=== PATIENT | male | born 1945 | race Caucasian/White ===

== ENCOUNTER 2017-02-23 15:50 | Emergency (ER) | payer OTHER, MEDICARE ==
[~2017-02-23] VITALS: Ht 172.7 cm; Wt 64.0 kg
[~2017-02-23 15:50] MED LIST: AMYL1CAP54 PO; APIX5TAB3 PO; ATOR20TA66 PO; CETI10CA PO; CHOL10002 PO; CLOP75TA15 PO; DILT180C95 PO; METH-360 PO; MORP60TA66 PO; NICO-687 TD; PANT-47 PO; POTA10TA15 PO; PRED20TA PO
[2017-02-23 17:10] VITALS: BP 141/70
== END 2017-02-23 17:10 | disposition home or self-care (01) ==
LOC: ER 15:51
DX: R53.1 Weakness (principal); I48.91 Unspecified atrial fibrillation; I25.10 Atherosclerotic heart disease of native coronary artery without angina pectoris; I11.0 Hypertensive heart disease with heart failure; I50.9 Heart failure, unspecified; J44.9 Chronic obstructive pulmonary disease, unspecified; E11.9 Type 2 diabetes mellitus without complications; F17.200 Nicotine dependence, unspecified, uncomplicated; Z86.19 Personal history of other infectious and parasitic diseases; Z87.01 Personal history of pneumonia (recurrent); Z88.8 Allergy status to other drugs, medicaments and biological substances; Z88.1 Allergy status to other antibiotic agents; Z79.899 Other long term (current) drug therapy
CPT/HCPCS: 93005; 99284

== ENCOUNTER 2017-11-27 16:56 | Emergency (ER) | payer MEDICARE, OTHER ==
[~2017-11-27] VITALS: Ht 172.7 cm; Wt 68.0 kg
[2017-11-27 17:31] LABS: BASOPHILS % (AUTO) 0.4 % (0-1); EOSINOPHILS # (AUTO) 0.3 X10'3 (0-0.9); EOSINOPHILS % (AUTO) 2.5 % (0-6); HEMATOCRIT 43.5 % (42.0-52.0); HEMOGLOBIN 14.5 g/dl (14.0-17.9); LYMPHOCYTES # (AUTO) 2.6 X10'3 (1.1-4.8); LYMPHOCYTES % (AUTO) 22.3 % (21-51); MEAN CORPUSCULAR HEMOGLOBIN 31.4 PG (27.0-31.0); MEAN CORPUSCULAR HGB CONC 33.3 % (33.0-36.5); MEAN CORPUSCULAR VOLUME 94.5 FL (78-98); MEAN PLATELET VOLUME 7.7 FL (7.4-10.4); MONOCYTES # (AUTO) 0.6 X10'3 (0-0.9); MONOCYTES % (AUTO) 4.7 % (2-12); NEUTROPHILS # (AUTO) 8.3 X10'3 (1.8-7.7); NEUTROPHILS % (AUTO) 70.1 % (42-75); PLATELET COUNT 305 X10'3 (140-440); RED CELL DISTRIBUTION WIDTH 14.1 % (11.5-14.5); WHITE BLOOD COUNT 11.8 X10'3 (4.5-11.0)
[2017-11-27 17:50] LABS: ALANINE AMINOTRANSFERASE 49 U/L (12-78); ALBUMIN 3.5 G/DL (3.4-5.0); ALBUMIN/GLOBULIN RATIO 0.9 (1.1-1.5); ALKALINE PHOSPHATASE 77 IU/L (46-116); ANION GAP 6 (8-16); ASPARTATE AMINO TRANSFERASE 25 U/L (10-37); BILIRUBIN,TOTAL 0.3 MG/DL (0.1-1.0); BLOOD UREA NITROGEN 19 MG/DL (7-18); BUN/CREATININE RATIO 28.4 (5.4-32.0); CALCIUM 8.4 MG/DL (8.5-10.1); CHLORIDE 103 MMOL/L (99-107); CREATININE 0.67 MG/DL (0.60-1.10); GLUCOSE 125 MG/DL (70-104); SODIUM 140 MMOL/L (135-145); TOTAL PROTEIN 7.3 G/DL (6.4-8.2); eGFR > 90 ML/MIN
[2017-11-27 18:03] LABS: INR 1.3 INR; PARTIAL THROMBOPLASTIN TIME 45 SECONDS (22-32); PROTHROMBIN TIME 12.8 SECONDS (9.0-12.0)
[2017-11-27] MEDS ORDERED: LEVO500T2 PO (18:19)
[2017-11-27 18:21] VITALS: BP 128/71
== END 2017-11-27 18:36 | disposition home or self-care (01) ==
LOC: ER 16:57
DX: J40 Bronchitis, not specified as acute or chronic (principal); I48.91 Unspecified atrial fibrillation; I25.119 Atherosclerotic heart disease of native coronary artery with unspecified angina pectoris; I11.0 Hypertensive heart disease with heart failure; I50.9 Heart failure, unspecified; E11.9 Type 2 diabetes mellitus without complications; J44.9 Chronic obstructive pulmonary disease, unspecified; B19.20 Unspecified viral hepatitis C without hepatic coma; F17.210 Nicotine dependence, cigarettes, uncomplicated; Z88.8 Allergy status to other drugs, medicaments and biological substances; Z79.899 Other long term (current) drug therapy
CPT/HCPCS: 36415; 71045; 80053; 83880; 84484; 85025; 85610; 85730; 93005; 99285

== ENCOUNTER 2018-06-19 19:46 | Emergency (ER) | payer MEDICARE, OTHER ==
[~2018-06-19] VITALS: Ht 167.6 cm; Wt 70.0 kg
[2018-06-19 20:59] LABS: CLARITY,URINE CLEAR (Clear); COLOR,URINE YELLOW (Yellow); GLUCOSE, URINE NEGATIVE (Neg); KETONES,URINE NEGATIVE (Neg); LEUKOCYTE ESTERASE ,URINE NEGATIVE (Neg); NITRITES, URINE NEGATIVE (Neg); OCCULT BLOOD,URINE NEGATIVE (Neg); PROTEIN,URINE NEGATIVE (Neg); UROBILINOGEN,URINE 0.2 E.U/dL (0.2-1.0)
[2018-06-19 21:01] LABS: UA COLLECTION TYPE CLN CATCH MIDSTREAM
[2018-06-19 22:31] VITALS: BP 116/65
== END 2018-06-19 22:33 | disposition home or self-care (01) ==
LOC: ER 19:46
DX: N20.0 Calculus of kidney (principal); M54.5 Low back pain; I48.91 Unspecified atrial fibrillation; I25.10 Atherosclerotic heart disease of native coronary artery without angina pectoris; I11.0 Hypertensive heart disease with heart failure; I50.9 Heart failure, unspecified; J44.9 Chronic obstructive pulmonary disease, unspecified; E11.9 Type 2 diabetes mellitus without complications; F17.200 Nicotine dependence, unspecified, uncomplicated; Z88.8 Allergy status to other drugs, medicaments and biological substances; Z88.1 Allergy status to other antibiotic agents; Z79.899 Other long term (current) drug therapy
CPT/HCPCS: 74176; 81003; 99284

== ENCOUNTER 2018-09-11 10:55 | Emergency (ER) | payer MEDICARE, OTHER ==
[~2018-09-11] VITALS: Ht 167.6 cm; Wt 72.7 kg
[~2018-09-11 10:55] MED LIST changes: +DILT-36 PO; -DILT180C95 PO; -MORP60TA66 PO; +MORP60TA77 PO
[2018-09-11 11:04] VITALS: BP 132/75
[2018-09-11] MEDS ORDERED: VALA100027 PO (12:38)
[2018-09-11] MEDS ORDERED: HYDR-4353 PO (12:43)
== END 2018-09-11 12:53 | disposition home or self-care (01) ==
LOC: ER 10:56
DX: B02.9 Zoster without complications (principal); R21 Rash and other nonspecific skin eruption; I48.91 Unspecified atrial fibrillation; I25.10 Atherosclerotic heart disease of native coronary artery without angina pectoris; I11.0 Hypertensive heart disease with heart failure; I50.9 Heart failure, unspecified; J44.9 Chronic obstructive pulmonary disease, unspecified; E11.9 Type 2 diabetes mellitus without complications; Z88.8 Allergy status to other drugs, medicaments and biological substances; Z79.899 Other long term (current) drug therapy
CPT/HCPCS: 99283

== ENCOUNTER 2018-09-25 20:04 | Emergency (ER) | payer MEDICARE, OTHER ==
[~2018-09-25] VITALS: Ht 170.2 cm; Wt 68.2 kg
[~2018-09-25 20:04] MED LIST changes: +HYDR-4353 PO; +VALA100027 PO
[2018-09-25] MEDS ORDERED: ketorolac tromethamine 15mg/ml inj. IM ONE (21:10)
[2018-09-25 22:03] VITALS: BP 129/61
== END 2018-09-25 22:04 | disposition home or self-care (01) ==
LOC: ER 20:05
DX: R51 Headache (principal); H54.7 Unspecified visual loss; I48.91 Unspecified atrial fibrillation; I25.10 Atherosclerotic heart disease of native coronary artery without angina pectoris; I50.9 Heart failure, unspecified; I11.0 Hypertensive heart disease with heart failure; J44.9 Chronic obstructive pulmonary disease, unspecified; E11.9 Type 2 diabetes mellitus without complications; F15.90 Other stimulant use, unspecified, uncomplicated; Z88.8 Allergy status to other drugs, medicaments and biological substances; Z88.1 Allergy status to other antibiotic agents; Z79.899 Other long term (current) drug therapy; Z86.19 Personal history of other infectious and parasitic diseases; Z87.01 Personal history of pneumonia (recurrent); Z86.79 Personal history of other diseases of the circulatory system; Z86.69 Personal history of other diseases of the nervous system and sense organs
CPT/HCPCS: 96372; 99283; J1885

== ENCOUNTER 2019-01-21 06:26 | Inpatient (IN) | payer MEDICARE, OTHER ==
[~2019-01-21] VITALS: Ht 170.2 cm; Wt 68.4 kg
[~2019-01-21 06:26] MED LIST changes: -HYDR-4353 PO
[2019-01-21] MEDS ORDERED: albuterol 2.5 MG/3 ML nebule NEB ONE (07:15)
[2019-01-21] MEDS ORDERED: CefTRIAXone 2gm/D5W 50ml 50 ML IV ONE (08:15)
[2019-01-21] MEDS ORDERED: azithromycin 250mg tablet PO ONE (08:15)
[2019-01-21] MEDS ORDERED: methylPREDNISolone sod succ 125mg/2ml vial IV ONE (08:15)
[2019-01-21 08:21] LABS: BASOPHILS # (AUTO) 0.1 X10'3 (0-0.2); BASOPHILS % (AUTO) 0.4 % (0-1); EOSINOPHILS # (AUTO) 0.1 X10'3 (0-0.9); EOSINOPHILS % (AUTO) 0.7 % (0-6); HEMATOCRIT 40.5 % (42.0-52.0); HEMOGLOBIN 13.6 g/dl (14.0-17.9); LYMPHOCYTES # (AUTO) 1.9 X10'3 (1.1-4.8); LYMPHOCYTES % (AUTO) 11.7 % (21-51); MEAN CORPUSCULAR HEMOGLOBIN 30.8 PG (27.0-31.0); MEAN CORPUSCULAR HGB CONC 33.7 g/dL (33.0-36.5); MEAN CORPUSCULAR VOLUME 91.5 FL (78-98); MEAN PLATELET VOLUME 8.3 FL (7.4-10.4); MONOCYTES # (AUTO) 1.3 X10'3 (0-0.9); MONOCYTES % (AUTO) 8.3 % (2-12); NEUTROPHILS # (AUTO) 12.5 X10'3 (1.8-7.7); NEUTROPHILS % (AUTO) 78.9 % (42-75); PLATELET COUNT 252 X10'3 (140-440); RED BLOOD COUNT 4.43 X10'6 (4.70-6.10); RED CELL DISTRIBUTION WIDTH 14.1 % (11.5-14.5); WHITE BLOOD COUNT 15.8 X10'3 (4.5-11.0)
[2019-01-21 08:25] LABS: D-DIMER 0.47 MG/L FEU (0-0.50)
[2019-01-21 09:08] LABS: ALANINE AMINOTRANSFERASE 18 U/L (12-78); ALBUMIN 3.1 G/DL (3.4-5.0); ALBUMIN/GLOBULIN RATIO 0.8 (1.1-1.5); ALKALINE PHOSPHATASE 80 IU/L (46-116); ANION GAP 11 (8-16); ASPARTATE AMINO TRANSFERASE 18 U/L (10-37); BILIRUBIN,TOTAL 0.6 MG/DL (0.1-1.0); BLOOD UREA NITROGEN 13 MG/DL (7-18); BUN/CREATININE RATIO 16.9 (5.4-32.0); CALCIUM 8.7 MG/DL (8.5-10.1); CHLORIDE 101 MMOL/L (99-107); CREATININE 0.77 MG/DL (0.60-1.10); GLUCOSE 138 MG/DL (70-104); POTASSIUM 3.9 MMOL/L (3.5-5.1); SODIUM 133 MMOL/L (135-145); TOTAL CARBON DIOXIDE 21.3 MMOL/L (24-32); TOTAL PROTEIN 7.2 G/DL (6.4-8.2); eGFR > 90 ML/MIN
[2019-01-21] MEDS ORDERED: ondansetron/PF 4mg/2ml inj IV PRN (09:30)
[2019-01-21] MEDS ORDERED: magnesium Cl slow-release 64mg tablet PO PRN (09:30)
[2019-01-21] MEDS ORDERED: acetaminophen 325mg tablet PO PRN (09:30)
[2019-01-21] MEDS ORDERED: potassium CL 10mEq/100ml bag 100 ML IV PRN ×2 (09:30)
[2019-01-21] MEDS ORDERED: magnesium 4gm in 100ml NS 100 ML IV PRN (09:30)
[2019-01-21] MEDS ORDERED: magnesium 2GM in 50ml NS 50 ML IV PRN (09:30)
[2019-01-21] MEDS ORDERED: mag hydrox/Alum hydrox/simeth 30ml oral suspension PO PRN (09:30)
[2019-01-21] MEDS ORDERED: potassium Cl 20 mEq SR tablet PO PRN ×2 (09:30)
[2019-01-21] MEDS ORDERED: docusate sod 100mg capsule PO PRN (09:30)
[2019-01-21] MEDS ORDERED: RIVA20TA PO (09:34)
[2019-01-21] MEDS ORDERED: pneumococcal 23-VAL P-sac vacc 25 mcg/0.5ml vial IMVAC ONE (09:35)
[2019-01-21] MEDS ORDERED: DILT120C91 PO (09:36)
[2019-01-21] MEDS ORDERED: SILD100T70 PO (09:36)
[2019-01-21] MEDS ORDERED: LISI2.5T2 PO (09:37)
[2019-01-21] MEDS: nicotine 21mg patch - 24 hr TD SCH (10:03)
[2019-01-21] MEDS ORDERED: insulin Lispro (HumaLOG) vial - multi-dose SQ SCH (10:50)
[2019-01-21] MEDS ORDERED: dextrose 50%-water 50ml dispensing syringe IV PRN ×2 (10:50)
[2019-01-21] MEDS ORDERED: MESSAGE TO PHARMACY PO ONE (10:50)
[2019-01-21] MEDS ORDERED: dextrose ORAL solution 15 GM/59 ML bottle PO PRN ×2 (10:50)
[2019-01-21] MEDS ORDERED: glucagon, human recombinant 1mg kit SUBCUT PRN (10:50)
[2019-01-21 11:14] LABS: HEMOGLOBIN A1C 6.6 % (4.5-6.2)
--- NOTE | 2019-01-21 11:55 | NUR ---
RECEIVED REPORT VIA TELEPHONE FROM ROSAURA CARDOZA.
--- NOTE | 2019-01-21 12:20 | NUR ---
RECEIVED FROM ER VIA [facility]. VS STABLE.
[2019-01-21 12:30] VITALS: BP 129/45
--- NOTE | 2019-01-21 13:28 | NUR ---
PAGER ID: [phone] MESSAGE: DR. JUNIOR, 6824/DEMI, C/O 09/14 GARCÍA PAIN AND 07/15 GEN PAIN, ACHE. HAVE NOT PAIN MED ORDERS. PT REQUESTING DIMA, STATES "THEY GAVE IS TO ME LAST TIME I WAS HERE, AND IT HELPED". JOE [id number]. TY
[2019-01-21] MEDS: methylPREDNISolone sod succ 125mg/2ml vial IV SCH ×2 (13:59→20:16)
[2019-01-21] MEDS: HYDROcodone/acetaminophen 5mg/325mg tablet PO PRN (14:33)
[2019-01-21 15:00] VITALS: BP 127/46
[2019-01-21] MEDS ORDERED: diltiazem SR 60mg capsule (twice daily) PO STA (15:46)
--- NOTE | 2019-01-21 18:00 | NUR ---
Patient in room PCU 3022. I have received report from Floyd KAPLAN and had the opportunity to ask questions and assume patient care.
--- NOTE | 2019-01-21 18:02 | NUR ---
PAGER ID: [phone] MESSAGE: DR. JUNIOR, 3022/DEMI, ADM THE DILTIAZEM 120MG PO AT 1605. CURRENT HR 128. JOE [id number], TY
[2019-01-21] MEDS ORDERED: diltiazem-NS 100mg/100ml 100 ML IV SCH (18:05)
[2019-01-21] MEDS ORDERED: diltiazem 5mg/ml 5ml inj. IV ONE (18:05)
--- NOTE | 2019-01-21 18:54 | NUR ---
Problems reprioritized. Patient report given, questions answered & plan of care reviewed with lo benitez.
[2019-01-21 19:00] VITALS: BP 134/68
--- NOTE | 2019-01-21 19:00 | NUR ---
Kaye Stringer was notified of the heart rate stable at 94-103, ordered to discontinue Cardizem drip. Addendum: 01/22/19 at 0549 by Brittany Barron RN and discontinue cardizem push.
[2019-01-21] MEDS: K and/or MAG REPLACEMENT MC SCH (20:00)
[2019-01-21] MEDS ORDERED: apixaban 5mg tablet PO SCH (20:00)
[2019-01-21] MEDS: cetirizine 10mg tablet PO SCH (20:16)
[2019-01-21] MEDS: insulin glargine (Lantus) pen - multi-dose SQ SCH (21:00)
[2019-01-21 23:00] VITALS: BP 128/67
[2019-01-22] MEDS: methylPREDNISolone sod succ 125mg/2ml vial IV SCH ×4 (01:52→21:08)
[2019-01-22 03:00] VITALS: BP 111/48
--- NOTE | 2019-01-22 05:30 | NUR ---
End noc note Patient has slept well tonight. Patient refused insulin stating that "I ate two meals at once I usually eat 3 meals a day at home, I dont want to take insulin, I should be fine for the night". Also took a shower on my shift, feeling a lot better.
--- NOTE | 2019-01-22 05:34 | NUR ---
Patient in room PCU 3022. I have received report from ROSAURA TRINIDAD and had the opportunity to ask questions and assume patient care.
--- NOTE | 2019-01-22 05:46 | NUR ---
Problems reprioritized. Patient report given, questions answered & plan of care reviewed with Nancy KAPLAN.
[2019-01-22 05:48] LABS: BASOPHILS % (AUTO) 0.2 % (0-1); EOSINOPHILS % (AUTO) 0 % (0-6); HEMATOCRIT 38.7 % (42.0-52.0); LYMPHOCYTES # (AUTO) 0.9 X10'3 (1.1-4.8); LYMPHOCYTES % (AUTO) 8.2 % (21-51); MEAN CORPUSCULAR HGB CONC 33.7 g/dL (33.0-36.5); MEAN CORPUSCULAR VOLUME 91.9 FL (78-98); MEAN PLATELET VOLUME 8.4 FL (7.4-10.4); MONOCYTES # (AUTO) 0.3 X10'3 (0-0.9); NEUTROPHILS # (AUTO) 10.1 X10'3 (1.8-7.7); NEUTROPHILS % (AUTO) 88.6 % (42-75); PLATELET COUNT 285 X10'3 (140-440); RED BLOOD COUNT 4.21 X10'6 (4.70-6.10); RED CELL DISTRIBUTION WIDTH 14.3 % (11.5-14.5); WHITE BLOOD COUNT 11.4 X10'3 (4.5-11.0)
--- NOTE | 2019-01-22 05:50 | NUR ---
pt just arrived from PCU , denies any discomfort and in no distress
--- NOTE | 2019-01-22 06:04 | NUR ---
Patient in room [facility] 340. I have received report from Nancy Peacock RN and had the opportunity to ask questions and assume patient care.
--- NOTE | 2019-01-22 06:06 | NUR ---
Problems reprioritized. Patient report given, questions answered & plan of care reviewed with ROSAURA Chilel.
[2019-01-22 06:10] LABS: ALANINE AMINOTRANSFERASE 21 U/L (12-78); ALBUMIN 3.1 G/DL (3.4-5.0); ALBUMIN/GLOBULIN RATIO 0.8 (1.1-1.5); ALKALINE PHOSPHATASE 85 IU/L (46-116); ANION GAP 10 (8-16); ASPARTATE AMINO TRANSFERASE 12 U/L (10-37); BILIRUBIN,TOTAL 0.3 MG/DL (0.1-1.0); BLOOD UREA NITROGEN 24 MG/DL (7-18); BUN/CREATININE RATIO 27.9 (5.4-32.0); CHLORIDE 100 MMOL/L (99-107); CHOL/HDL RATIO 2.6 (0.00-4.99); CHOLESTEROL 116 MG/DL (0-200); CREATININE 0.86 MG/DL (0.60-1.10); GLUCOSE 224 MG/DL (70-104); HDL CHOLESTEROL 45 MG/DL (35-60); LDL CHOLESTEROL 57 MG/DL (50-100); MAGNESIUM 1.9 MG/DL (1.5-2.4); POTASSIUM 4.2 MMOL/L (3.5-5.1); SODIUM 135 MMOL/L (135-145); TOTAL CARBON DIOXIDE 25.3 MMOL/L (24-32); TOTAL PROTEIN 7.2 G/DL (6.4-8.2); TRIGLYCERIDES 46 MG/DL (20-135); eGFR 88 ML/MIN
[2019-01-22 07:00] VITALS: BP 116/63
[2019-01-22] MEDS: K and/or MAG REPLACEMENT MC SCH ×2 (07:27→21:08)
[2019-01-22] MEDS: nicotine 21mg patch - 24 hr TD SCH (07:55)
[2019-01-22] MEDS: vitamin D (cholecalciferol) 1,000 unit tablet PO SCH (07:56)
[2019-01-22] MEDS: CefTRIAXone/D5W-Rocephin 1gm 50 ML IV SCH (07:56)
[2019-01-22] MEDS: atorvastatin 20mg tablet PO SCH (07:56)
[2019-01-22] MEDS: diltiazem CD 120mg capsule (once-daily) PO SCH (07:56)
[2019-01-22] MEDS: lisinopril 2.5mg tablet PO SCH (07:57)
[2019-01-22] MEDS: rivaroxaban 20mg tablet PO SCH (07:57)
[2019-01-22] MEDS: HYDROcodone/acetaminophen 5mg/325mg tablet PO PRN ×2 (08:02→21:11)
[2019-01-22] MEDS: azithromycin/NS 500mg/250ml 250 ML IV SCH (08:47)
--- NOTE | 2019-01-22 09:17 | NUR ---
Patient blood sugar was 197 this morning and prior to this had sugars over 200. Patient has technically met protocol but is refusing insulin. MD notified and discussed the importance of managing sugars and educated the patient that by bringing his sugars down he may in fact heal faster. Patient also educated that taking the Solu-Medrol will increase his sugars as well. Patient still refusing at this time.
[2019-01-22] MEDS: ipratropium 0.5 MG/2.5ML nebule IH SCH ×3 (10:13→20:19)
[2019-01-22] MEDS: levalbuterol 0.63mg/3ml nebule IH SCH ×3 (10:14→20:19)
[2019-01-22 11:00] VITALS: BP 135/81
--- NOTE | 2019-01-22 12:52 | NUR ---
Patient blood sugar was 227 prior to eating lunch, patient still refusing to allow us to give him insulin.
--- NOTE | 2019-01-22 18:22 | NUR ---
Problems reprioritized. Patient report given, questions answered & plan of care reviewed with Arielle Guzmán RN.
--- NOTE | 2019-01-22 18:30 | NUR ---
Patient in room [facility] 340. I have received report from KOJO KAPLAN and had the opportunity to ask questions and assume patient care.
[2019-01-22 20:00] VITALS: BP 123/63
[2019-01-22] MEDS: cetirizine 10mg tablet PO SCH (21:09)
[2019-01-22] MEDS: insulin glargine (Lantus) pen - multi-dose SQ SCH (23:09)
[2019-01-23] VITALS: BP 121/60
[2019-01-23] MEDS: methylPREDNISolone sod succ 125mg/2ml vial IV SCH ×2 (01:47→08:25)
[2019-01-23] MEDS: HYDROcodone/acetaminophen 5mg/325mg tablet PO PRN ×2 (01:48→11:47)
[2019-01-23] MEDS: levalbuterol 0.63mg/3ml nebule IH SCH ×2 (03:36→07:04)
[2019-01-23 04:31] LABS: BASOPHILS % (AUTO) 0.1 % (0-1); EOSINOPHILS % (AUTO) 0 % (0-6); HEMATOCRIT 33.3 % (42.0-52.0); HEMOGLOBIN 11.4 g/dl (14.0-17.9); LYMPHOCYTES # (AUTO) 1.1 X10'3 (1.1-4.8); LYMPHOCYTES % (AUTO) 8.7 % (21-51); MEAN CORPUSCULAR HGB CONC 34.3 g/dL (33.0-36.5); MEAN CORPUSCULAR VOLUME 90.5 FL (78-98); MEAN PLATELET VOLUME 8.2 FL (7.4-10.4); MONOCYTES # (AUTO) 0.4 X10'3 (0-0.9); MONOCYTES % (AUTO) 3.4 % (2-12); NEUTROPHILS # (AUTO) 11.3 X10'3 (1.8-7.7); NEUTROPHILS % (AUTO) 87.8 % (42-75); PLATELET COUNT 290 X10'3 (140-440); RED BLOOD COUNT 3.68 X10'6 (4.70-6.10); RED CELL DISTRIBUTION WIDTH 14.3 % (11.5-14.5); WHITE BLOOD COUNT 12.9 X10'3 (4.5-11.0)
[2019-01-23 04:54] LABS: ALANINE AMINOTRANSFERASE 49 U/L (12-78); ALBUMIN 2.9 G/DL (3.4-5.0); ALBUMIN/GLOBULIN RATIO 0.8 (1.1-1.5); ALKALINE PHOSPHATASE 67 IU/L (46-116); ANION GAP 8 (8-16); ASPARTATE AMINO TRANSFERASE 46 U/L (10-37); BILIRUBIN,TOTAL 0.2 MG/DL (0.1-1.0); BLOOD UREA NITROGEN 27 MG/DL (7-18); BUN/CREATININE RATIO 32.5 (5.4-32.0); CALCIUM 8.8 MG/DL (8.5-10.1); CHLORIDE 101 MMOL/L (99-107); CREATININE 0.83 MG/DL (0.60-1.10); GLUCOSE 252 MG/DL (70-104); MAGNESIUM 1.8 MG/DL (1.5-2.4); POTASSIUM 4.1 MMOL/L (3.5-5.1); SODIUM 134 MMOL/L (135-145); TOTAL CARBON DIOXIDE 25.1 MMOL/L (24-32); TOTAL PROTEIN 6.6 G/DL (6.4-8.2); eGFR > 90 ML/MIN
--- NOTE | 2019-01-23 06:32 | NUR ---
Patient in room [facility] 340. I have received report from Arielle Guzmán RN and had the opportunity to ask questions and assume patient care.
--- NOTE | 2019-01-23 06:32 | NUR ---
Problems reprioritized. Patient report given, questions answered & plan of care reviewed with KOJO KAPLAN.
[2019-01-23 07:00] VITALS: BP 114/64
[2019-01-23] MEDS: ipratropium 0.5 MG/2.5ML nebule IH SCH (07:04)
[2019-01-23] MEDS: K and/or MAG REPLACEMENT MC SCH (08:00)
[2019-01-23] MEDS: nicotine 21mg patch - 24 hr TD SCH (08:00)
[2019-01-23] MEDS: CefTRIAXone/D5W-Rocephin 1gm 50 ML IV SCH (08:25)
[2019-01-23] MEDS: lisinopril 2.5mg tablet PO SCH (08:25)
[2019-01-23] MEDS: diltiazem CD 120mg capsule (once-daily) PO SCH (08:25)
[2019-01-23] MEDS: vitamin D (cholecalciferol) 1,000 unit tablet PO SCH (08:26)
[2019-01-23] MEDS: atorvastatin 20mg tablet PO SCH (08:26)
[2019-01-23] MEDS: rivaroxaban 20mg tablet PO SCH (08:27)
[2019-01-23] MEDS: azithromycin/NS 500mg/250ml 250 ML IV SCH (09:32)
[2019-01-23] MEDS ORDERED: PRED20TA PO (09:55)
[2019-01-23] MEDS ORDERED: CEFU500T66 PO (09:55)
[2019-01-23] MEDS ORDERED: METF-950 PO (09:55)
[2019-01-23] MEDS ORDERED: AZIT250T83 PO (09:55)
[2019-01-23 11:00] VITALS: BP 111/73
--- NOTE | 2019-01-23 12:26 | NUR ---
Patient discharged home via roommate and taken from unit via wheelchair with x1 staff. PIV removed with cannula intact. Tele monitor removed and tele chambers notified. Patient blood sugar was not checked before leaving due to patient not receiving insulin and patient didn't want it checked again. [facility] and patient stated that he was going to go right after he leaves here. A copy of the prescription was placed in the hard chart. Patient was given discharge instructions and stated an understanding of it all.
== END 2019-01-23 12:33 | disposition home or self-care (01) | DRG 193 ==
LOC: ER 06:27 → ED HOLD 09:29 → PCU 3S 12:17 → SUR 3N 01-22 05:48
PROVIDERS: ADMIT Family Medicine; ATTEND Family Medicine
PROC: 3E0234Z Introduction of Serum, Toxoid and Vaccine into Muscle, Percutaneous Approach (ICD-10-PCS; principal; 2019-01-21)
DX: J18.9 Pneumonia, unspecified organism (principal); J96.00 Acute respiratory failure, unspecified whether with hypoxia or hypercapnia; I50.22 Chronic systolic (congestive) heart failure; I48.20 Chronic atrial fibrillation, unspecified; E87.1 Hypo-osmolality and hyponatremia; J44.0 Chronic obstructive pulmonary disease with (acute) lower respiratory infection; B19.20 Unspecified viral hepatitis C without hepatic coma; R51 Headache; F15.90 Other stimulant use, unspecified, uncomplicated; E11.9 Type 2 diabetes mellitus without complications; F17.210 Nicotine dependence, cigarettes, uncomplicated; I11.0 Hypertensive heart disease with heart failure; I25.10 Atherosclerotic heart disease of native coronary artery without angina pectoris; Z79.84 Long term (current) use of oral hypoglycemic drugs; Z79.01 Long term (current) use of anticoagulants; Z83.3 Family history of diabetes mellitus; Z23 Encounter for immunization; Z88.8 Allergy status to other drugs, medicaments and biological substances; Z79.899 Other long term (current) drug therapy; Z98.49 Cataract extraction status, unspecified eye; Z71.6 Tobacco abuse counseling
CPT/HCPCS: 36415; 71046; 80053; 80061; 82948; 83036; 83605; 83735; 83880; 84145; 84484; 85025; 85379; 87040; 87081; 87502; 87503; 90732; 93005; 93308; 94640; 94760; 96365; 96375; 99285; G0378; J0456; J0696; J1815; J2930; J3490; J7614

== ENCOUNTER 2019-02-01 12:49 | Emergency (ER) | payer MEDICARE, OTHER ==
[~2019-02-01] VITALS: Ht 170.2 cm; Wt 55.0 kg
[~2019-02-01 12:49] MED LIST changes: -AMYL1CAP54 PO; -APIX5TAB3 PO; +CEFU500T66 PO; -CLOP75TA15 PO; -DILT-36 PO; +DILT120C91 PO; +LISI2.5T2 PO; +METF-950 PO; -METH-360 PO; -MORP60TA77 PO; -NICO-687 TD; -PANT-47 PO; -POTA10TA15 PO; +RIVA20TA PO; -VALA100027 PO
[2019-02-01 13:03] VITALS: BP 126/98
[2019-02-01] MEDS ORDERED: L. R1CAP4 PO (14:31)
[2019-02-01] MEDS ORDERED: AMOX-580 PO (14:31)
== END 2019-02-01 15:09 | disposition home or self-care (01) ==
LOC: ER 12:50
DX: J18.9 Pneumonia, unspecified organism (principal); I48.91 Unspecified atrial fibrillation; I25.10 Atherosclerotic heart disease of native coronary artery without angina pectoris; I11.0 Hypertensive heart disease with heart failure; I50.9 Heart failure, unspecified; J44.9 Chronic obstructive pulmonary disease, unspecified; E11.9 Type 2 diabetes mellitus without complications; F15.90 Other stimulant use, unspecified, uncomplicated; Z86.19 Personal history of other infectious and parasitic diseases; Z87.891 Personal history of nicotine dependence; Z88.8 Allergy status to other drugs, medicaments and biological substances; Z88.1 Allergy status to other antibiotic agents; Z79.899 Other long term (current) drug therapy
CPT/HCPCS: 71045; 99283

== ENCOUNTER 2019-02-09 13:59 | Emergency (ER) | payer MEDICARE, OTHER ==
[~2019-02-09] VITALS: Ht 177.8 cm; Wt 80.0 kg
[~2019-02-09 13:59] MED LIST changes: +AMOX-580 PO; +L. R1CAP4 PO
[2019-02-09 14:30] VITALS: BP 215/177
--- NOTE | 2019-02-09 16:07 | NUR ---
PATIENT LWJASPER. CALLED PATIENTS HOME AND SPOKE TO ASKED HER TO CONTACT HER TO RETURN TO ER DUE TO HIS BLOOD PRESSURE. SHE SAID SHE WOULD SEND HIM BACK INTO THE ER.
--- NOTE | 2019-02-09 16:15 | NUR ---
PATIENT RETURNED MY CALL STATED HE DIDNT WANT TO DRIVE BACK TO THE ER "I JUST WANT TO LAY DOWN" HE STATED, I ASKED THAT HE CALL AN AMBULANCE IF HE COULDNT DRIVE. HE SAID HE WOULD THINK ABOUT. I EXPRESSED HOW DANGEROUSLY HIGH IS BLOOD PRESSURE IS AND TO PLEASE CALL EMR.
== END 2019-02-09 16:21 | disposition left against medical advice (07) ==
LOC: ER 14:00
DX: R45.1 Restlessness and agitation (principal); Z53.21 Procedure and treatment not carried out due to patient leaving prior to being seen by health care provider

== ENCOUNTER 2019-10-07 20:02 | Emergency (ER) | payer MEDICARE, OTHER ==
[~2019-10-07] VITALS: Ht 167.6 cm; Wt 68.2 kg
[~2019-10-07 20:02] MED LIST changes: -AMOX-580 PO; -METF-950 PO; -PRED20TA PO
[2019-10-07 20:11] VITALS: BP 142/95
== END 2019-10-07 22:15 | disposition home or self-care (01) ==
LOC: ER 20:02
DX: S90.122A Contusion of left lesser toe(s) without damage to nail, initial encounter (principal); I48.91 Unspecified atrial fibrillation; I25.10 Atherosclerotic heart disease of native coronary artery without angina pectoris; I11.0 Hypertensive heart disease with heart failure; I50.9 Heart failure, unspecified; J44.9 Chronic obstructive pulmonary disease, unspecified; E11.9 Type 2 diabetes mellitus without complications; F15.90 Other stimulant use, unspecified, uncomplicated; Z87.01 Personal history of pneumonia (recurrent); Z86.19 Personal history of other infectious and parasitic diseases; Z72.89 Other problems related to lifestyle; Z88.1 Allergy status to other antibiotic agents; Z79.2 Long term (current) use of antibiotics; Z88.8 Allergy status to other drugs, medicaments and biological substances; Z79.899 Other long term (current) drug therapy; X58.XXXA Exposure to other specified factors, initial encounter; Y93.89 Activity, other specified; Y92.89 Other specified places as the place of occurrence of the external cause; Y99.8 Other external cause status
CPT/HCPCS: 73630; 99284

== ENCOUNTER 2020-07-10 17:44 | Emergency (ER) | payer MEDICARE, OTHER ==
[~2020-07-10] VITALS: Ht 172.7 cm; Wt 63.6 kg
[2020-07-10 17:48] VITALS: BP 126/88
[2020-07-10] MEDS ORDERED: CYCL-1 PO (20:23)
[2020-07-10] MEDS ORDERED: HYDR-3965 PO (20:23)
[2020-07-10] MEDS ORDERED: ketorolac trometh. 30mg/ml inj. IM ONE (20:25)
[2020-07-10] MEDS ORDERED: HYDROcodone/acetaminophen 5mg/325mg tablet PO ONE (20:25)
[2020-07-10] MEDS ORDERED: diazepam 5mg tablet PO ONE (20:25)
== END 2020-07-10 20:47 | disposition home or self-care (01) ==
LOC: ER 17:45
DX: M54.2 Cervicalgia (principal); R51.9 Headache, unspecified; M62.838 Other muscle spasm; I48.91 Unspecified atrial fibrillation; I25.10 Atherosclerotic heart disease of native coronary artery without angina pectoris; I15.0 Renovascular hypertension; I11.0 Hypertensive heart disease with heart failure; J44.9 Chronic obstructive pulmonary disease, unspecified; E11.9 Type 2 diabetes mellitus without complications; F12.90 Cannabis use, unspecified, uncomplicated; Z87.01 Personal history of pneumonia (recurrent); Z86.19 Personal history of other infectious and parasitic diseases; Z87.442 Personal history of urinary calculi; Z72.89 Other problems related to lifestyle; Z88.1 Allergy status to other antibiotic agents; Z88.8 Allergy status to other drugs, medicaments and biological substances; Z79.899 Other long term (current) drug therapy
CPT/HCPCS: 96372; 99283; J1885

== ENCOUNTER 2023-06-25 01:19 | Emergency (ER) | payer OTHER ==
[~2023-06-25] VITALS: Ht 172.7 cm; Wt 63.4 kg
[~2023-06-25 01:19] MED LIST changes: +CYCL-1 PO; +DILT120C77 PO; -DILT120C91 PO; +LISI2.5T14 PO; -LISI2.5T2 PO
[2023-06-25 01:26] VITALS: BP 137/75; PULSE 83; RESP 18; TEMP 98.4; O2SAT 98
[2023-06-25 02:38] LABS: ALANINE AMINOTRANSFERASE 22 U/L (12-78); ALBUMIN 3.4 G/DL (3.4-5.0); ALBUMIN/GLOBULIN RATIO 0.8 (1.1-1.5); ALKALINE PHOSPHATASE 94 IU/L (46-116); ANION GAP 9 (8-16); ASPARTATE AMINO TRANSFERASE 21 U/L (10-37); BILIRUBIN,TOTAL 0.4 MG/DL (0.1-1.0); BLOOD UREA NITROGEN 18 MG/DL (7-18); BUN/CREATININE RATIO 17.5 (10.0-20.0); CALCIUM 8.8 MG/DL (8.5-10.1); CHLORIDE 103 MMOL/L (99-107); CREATININE 1.03 MG/DL (0.60-1.10); POTASSIUM 3.7 MMOL/L (3.5-5.1); SODIUM 139 MMOL/L (135-145); TOTAL CARBON DIOXIDE 26.8 MMOL/L (24-32); TOTAL PROTEIN 7.8 G/DL (6.4-8.2); eCRCL 55 ML/MIN; eGFR 70 ML/MIN
[2023-06-25 02:46] LABS: PRO BRAIN NATRIURETIC PEPTIDE 347 PG/ML (0-450)
[2023-06-25 02:48] LABS: GLUCOSE 124 MG/DL (70-104)
== END 2023-06-25 07:00 | disposition left against medical advice (07) ==
LOC: ER 01:20
DX: R07.9 Chest pain, unspecified (principal); Z53.21 Procedure and treatment not carried out due to patient leaving prior to being seen by health care provider; J44.9 Chronic obstructive pulmonary disease, unspecified; F15.90 Other stimulant use, unspecified, uncomplicated; I50.9 Heart failure, unspecified
CPT/HCPCS: 36415; 71045; 80053; 83880; 84484; 85025; 93005

== ENCOUNTER 2023-09-05 08:30 | Emergency (ER) | payer OTHER ==
[~2023-09-05] VITALS: Ht 170.2 cm; Wt 67.0 kg
[2023-09-05] MEDS: acetaminophen 325mg tablet PO ONE (08:54)
[2023-09-05 09:35] VITALS: BP 170/76; PULSE 75; RESP 16; TEMP 98.8; O2SAT 96
== END 2023-09-05 09:43 | disposition home or self-care (01) ==
LOC: ER 08:31
DX: R07.89 Other chest pain (principal); I48.91 Unspecified atrial fibrillation; I25.10 Atherosclerotic heart disease of native coronary artery without angina pectoris; I11.0 Hypertensive heart disease with heart failure; I50.9 Heart failure, unspecified; E11.9 Type 2 diabetes mellitus without complications; J44.9 Chronic obstructive pulmonary disease, unspecified; F15.90 Other stimulant use, unspecified, uncomplicated; Z87.442 Personal history of urinary calculi; Z72.89 Other problems related to lifestyle; Z88.8 Allergy status to other drugs, medicaments and biological substances; Z88.1 Allergy status to other antibiotic agents; Z79.899 Other long term (current) drug therapy
CPT/HCPCS: 71045; 93005; 99284

== ENCOUNTER 2025-01-04 13:50 | Emergency (ER) | payer MEDICARE, OTHER ==
[~2025-01-04] VITALS: Ht 167.6 cm; Wt 65.9 kg
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
[2025-01-04] MEDS ORDERED: HYDR-3973 PO (16:19)
[2025-01-04] MEDS: HYDROcodone/acetaminophen 10/325mg tab PO ONE (16:22)
[2025-01-04 16:28] VITALS: BP 145/75; PULSE 87; RESP 14; TEMP 98.4; O2SAT 96
== END 2025-01-04 16:30 | disposition home or self-care (01) ==
LOC: ER 13:51
DX: S81.801A Unspecified open wound, right lower leg, initial encounter (principal); E11.9 Type 2 diabetes mellitus without complications; I11.0 Hypertensive heart disease with heart failure; I50.9 Heart failure, unspecified; I25.10 Atherosclerotic heart disease of native coronary artery without angina pectoris; I48.91 Unspecified atrial fibrillation; J44.9 Chronic obstructive pulmonary disease, unspecified; Z88.1 Allergy status to other antibiotic agents; Z88.8 Allergy status to other drugs, medicaments and biological substances; V89.2XXA Person injured in unspecified motor-vehicle accident, traffic, initial encounter; Y93.89 Activity, other specified; Y92.410 Unspecified street and highway as the place of occurrence of the external cause; Y99.8 Other external cause status
CPT/HCPCS: 73590; 99283; A6446; A6449

== ENCOUNTER 2025-02-01 19:16 | Emergency (ER) | payer MEDICARE, OTHER ==
[~2025-02-01] VITALS: Ht 172.7 cm; Wt 60.0 kg
[2025-02-01 19:18] VITALS: TEMP 98.3
--- NOTE | 2025-02-01 19:47 | RADIOLOGY REPORT ---
CLINICAL HISTORY: Shortness of breath with cough. TECHNIQUE: Single frontal view of the chest was obtained. COMPARISON: DI CHEST,SINGLE VIEW on DOS: 09/05/23. FINDINGS: DEVICES/LINES/TUBES: None. LUNGS: Clear. PLEURA: No pneumothorax or pleural effusion. MEDIASTINUM/OTHER: Normal heart size and mediastinal contours. Aortic atherosclerosis Trachea is midline. BONES: No acute osseous abnormality. UPPER ABDOMEN: Unremarkable. IMPRESSION: No acute cardiopulmonary process.
[2025-02-01 20:06] LABS: MEAN PLATELET VOLUME 7.8 FL (7.4-10.4); RED CELL DISTRIBUTION WIDTH 14.8 % (11.5-14.5)
--- NOTE | 2025-02-01 20:10 | Physician Documentation ---
History of Present Illness ~ General Chief Complaint: General Stated Complaint: FLU SYMPTOMS Time Seen by MD: 19:52 [facility] Mode of Arrival: POV History of Present Illness Initial Comments Patient is a very pleasant 79-year-old male that presents to the emergency department for evaluation of flu-like symptoms for the past 24 hours. Patient reports that he received a flu immunization on the of this month. Patient reports that over the last couple of days he has felt generally unwell but developed nausea and vomiting today. Patient reports that he is unable to keep any liquids down at this time. Patient denies fever chills diarrhea at this time. Patient reports that his cough is worse than normal although he does have a chronic cough at baseline. Patient also reports that he has a regular methamphetamine user but he has not used today. Patient reports that he is unable to keep down his regular medications at this time. He reports that he takes medication for high blood pressure. Patient's blood pressure is within normal range at this time. Medication Reconciliation Allergies: Coded Allergies: disulfiram (Verified Allergy, Unknown, 01/04/25) tetracycline (Verified Allergy, Unknown, swelling of penis, 01/04/25) Scheduled Atorvastatin Calcium (Atorvastatin Calcium), 2 TAB PO DAILY, (Reported) Cefuroxime Axetil (Cefuroxime), 1 TAB PO Q12H Cetirizine Hcl (Zyrtec), 10 MG PO HS, (Reported) Cholecalciferol (Vitamin D3) (Vitamin D3), 3 TAB PO DAILY, (Reported) Diltiazem Hcl (Diltiazem Er), 1 CAP PO DAILY, (Reported) L. Rhamnosus GG/Inulin (Culturelle Probiotics Capsule), 1 CAP PO Q12H PRN Lisinopril (Lisinopril), 1 TAB PO DAILY, (Reported) Rivaroxaban (Xarelto), 1 TAB PO DAILY, (Reported) Scheduled PRN Cyclobenzaprine* (Cyclobenzaprine*), 1 TAB PO TID PRN for muscle spasms Past Medical History Past Medical History: Glaucoma, Angina, Atrial Fibrillation, Coronary Artery Disease, Congestive Heart Failure, Hypertension, COPD, Pneumonia, Hepatitis C, [place] Stones, Diabetes Past Surgical History: no surgical history Patient History: (DM Type 2) Diabetes mellitus type 2 MOTHER FH: tuberculosis FATHER Polio FATHER Alcohol Use: Occasionally Drug Use: methamphetamine Lives In: Home Review of Systems ROS As stated above in the HPI, otherwise all systems are reviewed and negative. Physical Exam Physical Exam Vital Signs: Temperature: 98.3, Source: Oral, Heart Rate: 59, Respiratory Rate: 17, BP: 160/70, Pulse Oximetry: 98, Weight: 60.000 Physical Exam VITALS: Reviewed and as above. GENERAL: Alert, no apparent distress. HEENT: Normocephalic, atraumatic, PERRL, EOMI, dry mucosa, no erythema RESPIRATORY: Lungs clear, normal breath sounds, no respiratory distress. CHEST: No accessory muscle use, no retractions CV: Regular rate, rhythm, no edema, no murmur, No: JVD GI: Soft, non-tender, bowels sounds present, no rebound, guarding, or rigidity BACK: No CVA tenderness, or swelling MUSCULOSKELETAL No deformities, no edema in upper or lower extremities. SKIN: Warm and dry, no rash NEURO: Oriented x4, No motor or sensory deficit PSYCH: Normal mood and affect, no agitation noted, patient does demonstrate dyskinesias. Ask if this is patient's baseline said he is unsure but has used methamphetamine for very long time. Progress Results/Orders Results/Orders Orders - MARY KATE TREADWELL Covid19 Binax Poc Result Entry (02/01/25 20:05) Completed Orders - MARY KATE TREADWELL Influenza Type A&B Rapid Test (02/01/25 20:10) Ondansetron Disint. Tablet (Zofran Odt T (02/01/25 21:15) Hs Troponin I W Calculations (02/01/25 21:16) Medications Received in ER Medications (Trade) Dose Ordered Sig/Cindy Route PRN Reason Start Time Stop Time Status Last Admin Dose Admin (Zofran ODT tablet) 4 mg ONCE ONCE PO 02/01/25 21:15 02/01/25 21:16 DC 02/01/25 21:23 4 MG Vital Signs 02/01/25 02/01/25 02/01/25 02/01/25 19:18 20:02 20:19 21:01 Temp 98.3 Pulse 59 53 75 Resp 16 17 17 16 B/P (MAP) 160/70 125/67 (86) 130/62 (84) Pulse Ox 98 95 96 O2 Flow Rate 0 0 Laboratory Tests Test 02/01/25 19:43 02/01/25 19:45 02/01/25 20:10 White Blood Count 7.6 Red Blood Count 4.01 L Hemoglobin 12.2 L Hematocrit 36.7 L Mean Corpuscular Volume 91.5 Mean Corpuscular Hemoglobin 30.4 Mean Corpuscular Hemoglobin Concent 33.3 Red Cell Distribution Width 14.8 H Platelet Count 349 Mean Platelet Volume 7.8 Neutrophils (%) (Auto) 58.6 Lymphocytes (%) (Auto) 26.2 Monocytes (%) (Auto) 9.5 Eosinophils (%) (Auto) 3.9 Basophils (%) (Auto) 1.8 H Neutrophils # (Auto) 4.4 Lymphocytes # (Auto) 2.0 Monocytes # (Auto) 0.7 Eosinophils # (Auto) 0.3 Basophils # (Auto) 0.1 CBC Comment Sodium Level 136 Potassium Level 4.6 Chloride Level 100 Carbon Dioxide Level 29.6 Anion Gap 6 L Blood Urea Nitrogen 17 Creatinine 0.86 Estimated GFR/1.73 m2 86 BUN/Creatinine Ratio 19.8 Glucose Level 99 Calcium Level 9.1 Total Bilirubin 0.8 Aspartate Amino Transf (AST/SGOT) 23 Alanine Aminotransferase (ALT/SGPT) 19 Alkaline Phosphatase 114 Troponin I High Sensitivity 10 Pro-B-Type Natriuretic Peptide 734 H Total Protein 8.0 Albumin 3.7 Globulin 4.3 Albumin/Globulin Ratio 0.9 L Chemistry Comments Lactic Acid Level 0.7 Influenza Type A Antigen Negative Influenza Type B Antigen Negative SARS-CoV-2 Antigen (Rapid) Negative Microbiology Date/Time Source Procedure Growth Status 02/01/25 19:55 Blood Arm Right Blood Culture - Preliminary NEGATIVE (LESS THAN 24 HOURS) Resulted Medical Decision Making Additional information obtaine: other Findings Patient: 79-year-old male Chief Complaint: Flu-like symptoms with nausea and vomiting for 24 hours Medical Decision Making: Complexity of Presenting Problem: Moderate complexity. Patient presented with acute gastroenteritis following recent influenza vaccination (received 01/27), complicated by inability to tolerate oral intake and medications, with history of methamphetamine use and hypertension. Diagnostic Workup and Data Reviewed: Vital signs: Blood pressure within normal limits despite inability to take antihypertensive medications Laboratory studies: All within normal range BNP: Mildly elevated in 700s pg/mL range Chest X-ray: Negative for pneumonia, pulmonary congestion, or other acute findings Viral respiratory panel: Negative for COVID-19, Influenza A, and Influenza B Physical examination: No signs of congestive heart failure, no lower extremity edema, no evidence of significant dehydration Assessment and Clinical Reasoning: The patient's presentation is most consistent with acute viral gastroenteritis or post-vaccination reaction. Common side effects of influenza vaccination in elderly patients include systemic symptoms such as nausea, fatigue, and malaise, though these typically resolve within a few days. [1-2] The temporal relationship between vaccination (received within the past week) and symptom onset supports this possibility. The mildly elevated BNP of 700s pg/mL without clinical signs of heart failure is noted. BNP levels can be elevated due to multiple cardiac and non-cardiac causes including advanced age, renal dysfunction, and acute illness, even in the absence of heart failure. [3] Given the patient's normal chest X-ray, absence of pulmonary congestion, no lower extremity edema, and stable blood pressure, acute decompensated heart failure is unlikely. The elevated BNP may reflect chronic cardiac remodeling or be influenced by the patient's age and acute illness. [4-5] The patient demonstrated successful response to antiemetic therapy with ondansetron and was able to tolerate oral fluids, meeting criteria for safe discharge. Per IDSA guidelines, patients with mild to moderate dehydration who respond to oral rehydration therapy and can maintain adequate oral intake are appropriate for outpatient management. [6] Risk of Complications: Low. Patient has no fever, no diarrhea, negative infectious workup, stable vital signs, and demonstrated ability to maintain hydration after antiemetic administration. Treatment Plan: Discharge home with prescription for ondansetron for nausea control Oral rehydration therapy as needed Resume normal diet as tolerated Continue home antihypertensive medications as able to tolerate oral intake Follow-up: Primary care provider follow-up arranged Return Precautions: Patient instructed to return to emergency department for: Worsening nausea/vomiting or inability to keep down fluids Development of fever, severe abdominal pain, or bloody stools Signs of dehydration (decreased urination, dizziness, confusion) Chest pain, shortness of breath, or significant lower extremity swelling Any other concerning symptoms Disposition: Discharge to home in stable condition with appropriate follow-up and return precautions. Differential Diagnosis Please see discharge MDM. Departure Disposition: 01 HOME / SELF CARE / HOMELESS Impression: Primary Impression: Viral illness Additional Impression: Gastroenteritis Condition: Stable Discharge Instructions: Viral Gastroenteritis, Adult, [id number] Additional Instructions: DISCHARGE INSTRUCTIONS Your Diagnosis: Viral illness with nausea and vomiting What You Need to Know: You came to the emergency department with nausea and vomiting. Your tests showed no serious problems. Your symptoms should improve over the next few days. Medications: Ondansetron (Zofran): Take as prescribed for nausea. This will help you keep down food and liquids. [1] Resume your regular blood pressure medications as soon as you can keep them down What to Do at Home: Fluids: Start with small, frequent sips of clear liquids (water, broth, sports drinks like Pedialyte or Gatorade) [2-3] Gradually increase the amount as tolerated Avoid alcohol and caffeine until you feel better Food: Wait 4-6 hours after vomiting stops before eating [4] Start with bland, [id number] foods (crackers, toast, rice, bananas) Return to your normal diet within 24 hours as tolerated [2-3] Eat small, frequent meals Activity: Rest as needed You may return to normal activities when you feel better Follow-Up: See your primary care doctor within 1-2 weeks Call your doctor if symptoms are not improving in 2-3 days When to Return to the Emergency Department: Come back immediately if you develop any of these warning signs: Vomiting that won't stop or cannot keep down any liquids for more than 12 hours Signs of dehydration: extreme thirst, very dark urine, dizziness when standing, confusion, or not urinating for 8+ hours Severe abdominal pain that is getting worse Fever over 101F (38.3C) Blood in vomit or stool Chest pain or trouble breathing Severe weakness or fainting Swelling in your legs or difficulty breathing when lying down Important Reminders: Your symptoms may be related to your recent flu vaccine, which can cause temporary side effects Most viral illnesses improve within 2-3 days Stay hydrated - this is the most important part of your recovery [2-3] If you have any questions or concerns, please call your doctor or return to the emergency department. Referrals: NO PRIMARY CARE PROVIDER (PCP) Prescriptions ONDANSETRON ODT 4mg tablet (ONDANSETRON ODT) 4 Mg Tab.rapdis 1 TAB PO Q6H PRN PRN for nausea/vomiting for 4 Days, #16 TAB 0 Refills Prov: MARY KATE TREADWELL 12/28/25 Education Educated: Patient Educated regarding: diagnosis, treatment, need for follow up Signature Scribe Signature: A Attestation: Scribed for Mary Kate Treadwell by RYLEY Shoemaker . 02/01/25 22:48 MARY KATE TREADWELL Feb 01, 2025 20:10
[2025-02-01 20:29] LABS: CREATININE 0.86 MG/DL (0.60-1.10); PRO BRAIN NATRIURETIC PEPTIDE 734 PG/ML (0-450); TOTAL CARBON DIOXIDE 29.6 MMOL/L (24-32); eCRCL 61 ML/MIN; eGFR 86 ML/MIN
[2025-02-01 20:35] LABS: INFLUENZA TYPE A ANTIGEN RAPID NEGATIVE (Negative); INFLUENZA TYPE B ANTIGEN RAPID NEGATIVE (Negative)
[2025-02-01 21:01] VITALS: BP 130/62; PULSE 75; RESP 16; O2SAT 96
[2025-02-01] MEDS: ondansetron 4mg rapidly disintigrating tab PO ONE (21:23)
[2025-02-01] MEDS ORDERED: ONDA-243 PO (22:47)
== END 2025-02-01 23:00 | disposition home or self-care (01) ==
LOC: ER 19:16
DX: B34.9 Viral infection, unspecified (principal); K52.9 Noninfective gastroenteritis and colitis, unspecified; E11.9 Type 2 diabetes mellitus without complications; I11.0 Hypertensive heart disease with heart failure; I50.9 Heart failure, unspecified; F15.90 Other stimulant use, unspecified, uncomplicated; I25.10 Atherosclerotic heart disease of native coronary artery without angina pectoris; I48.91 Unspecified atrial fibrillation; J44.9 Chronic obstructive pulmonary disease, unspecified; Z87.442 Personal history of urinary calculi; Z87.01 Personal history of pneumonia (recurrent); Z86.19 Personal history of other infectious and parasitic diseases; Z88.1 Allergy status to other antibiotic agents; Z88.8 Allergy status to other drugs, medicaments and biological substances; Z79.899 Other long term (current) drug therapy; Z72.89 Other problems related to lifestyle; Z20.822 Contact with and (suspected) exposure to COVID-19
CPT/HCPCS: 36415; 71045; 80053; 83605; 83880; 84484; 85025; 87040; 87804; 87811; 99284